=== PATIENT | female | born 1960 | race African-American/Black ===

== ENCOUNTER 2022-03-17 15:04 | Emergency (ER) | payer MEDICARE, MEDICAID ==
[~2022-03-17] VITALS: Ht 167.6 cm; Wt 70.0 kg
[~2022-03-17 15:04] MED LIST: METH-372
[2022-03-17] MEDS ORDERED: FAMOTIDINE 20MG TABLET PO ONE (16:15)
[2022-03-17] MEDS ORDERED: MAGNESIUM/ALUMINUM HYDROXIDE/SIMETHICONE 30ML UDC PO ONE (16:15)
[2022-03-17 17:07] LABS: BASOPHILS % 0.7 % (0.0-2.0); EOSINOPHILS % 3.2 % (0.0-5.0); HEMATOCRIT. 42.2 % (36.0-48.0); HEMOGLOBIN. 14.2 g/dL (12.0-16.0); LYMPHOCYTES % 31.3 % (20.0-50.0); MEAN CORPUSCULAR HEMOGLOBIN 33.2 pg (28.0-32.0); MEAN CORPUSCULAR VOLUME 98.7 fL (81.0-99.0); MEAN PLATELET VOLUME 6.8 fl (7.4-10.4); MONOCYTES % 6.5 % (2.0-8.0); NEUTROPHILS % 58.3 % (40.0-76.0); PLATELET 306 x1000/uL (130-400); RED BLOOD CELL COUNT 4.28 mill/uL (4.2-5.4); RED CELL DISTRIBUTION WIDTH 12.8 % (11.6-14.6)
[2022-03-17 17:17] LABS: CHLORIDE 107 mEq/L (98-107)
[2022-03-17 17:21] LABS: PARTIAL THROMBOPLASTIN TIME 31.3 sec (23.4-31.0); PROTHROMBIN TIME 10.8 sec (9.6-11.0)
[2022-03-17 17:37] VITALS: BP 158/59
== END 2022-03-17 18:56 | disposition home or self-care (01) ==
LOC: ER 15:04
DX: K21.9 Gastro-esophageal reflux disease without esophagitis (principal); I10 Essential (primary) hypertension; F17.210 Nicotine dependence, cigarettes, uncomplicated; Z71.6 Tobacco abuse counseling
CPT/HCPCS: 36415; 71045; 80053; 84484; 85025; 93005; 99285; 99406